=== PATIENT | male | born 1990 | race American Indian/Alaskan Native ===

== ENCOUNTER 2024-01-11 16:46 | Emergency (ER) | payer MEDICAID | END 2024-01-11 17:20 | disposition home or self-care (01) | LOC: MERGE 16:46 → DL.ED 16:46 | DX: J06.9 Acute upper respiratory infection, unspecified (principal) | CPT/HCPCS: 99283 ==

== ENCOUNTER 2024-03-28 16:25 | Emergency (ER) | payer MEDICAID ==
[2024-03-28] MEDS: Take Home: Benzonatate 100 MG, 6 Cap Pack PO ONE (16:55)
[2024-03-28] MEDS: Ibuprofen 800 MG Tab PO ONE (16:55)
[2024-03-28] MEDS: Acetaminophen 500 MG Tab PO ONE (16:55)
[2024-03-28] MEDS: Benzonatate 100 MG Cap PO ONE (16:56)
== END 2024-03-28 17:00 | disposition home or self-care (01) ==
LOC: DL.ED 16:25
DX: J06.9 Acute upper respiratory infection, unspecified (principal); R07.81 Pleurodynia; Z87.891 Personal history of nicotine dependence
CPT/HCPCS: 99283; A9270

== ENCOUNTER 2024-06-22 19:31 | Emergency (ER) | payer MEDICAID | END 2024-06-22 21:01 | disposition left against medical advice (07) | LOC: DL.ED 19:31 | DX: Z53.21 Procedure and treatment not carried out due to patient leaving prior to being seen by health care provider (principal) ==

== ENCOUNTER 2025-05-27 06:51 | Emergency (ER) | payer MEDICAID, OTHER ==
[2025-05-27] MEDS: Thiamine 200 MG/2 ML MDV ONE (07:46)
[2025-05-27] MEDS: Thiamine 200 MG/2 ML MDV IVPUSH ONE (07:46)
[2025-05-27] MEDS: Diphtheria,Pertussis(Acell),Tetanus Vaccine 0.5 ML Syringe IM ONE (08:42)
[2025-05-27] MEDS: Amoxicillin/Clavulanate K 875-125 MG Tab PO ONE (08:42)
[2025-05-27] MEDS: Lidocaine/EPINEPHrine/Tetracaine Soln 5 ML Each TOP ONE (08:43)
[2025-05-27] MEDS: Silver Nitrate Applicator Each TOP ONE (09:01)
[2025-05-27] MEDS: Bacitracin Oint 1 GM U/D Packet TOP ONE (09:59)
== END 2025-05-27 09:40 | disposition home or self-care (01) ==
LOC: DL.ED 06:51
DX: S01.352A Open bite of left ear, initial encounter (principal); Z23 Encounter for immunization; Z88.8 Allergy status to other drugs, medicaments and biological substances; Y04.2XXA Assault by strike against or bumped into by another person, initial encounter
CPT/HCPCS: 70450; 72125; 90471; 90715; 96361; 96374; 99283; 99284; A9270; J3411; J7030